=== PATIENT | female | born 1955 | race Caucasian/White ===

== ENCOUNTER 2019-03-15 13:17 | Emergency (ER) | payer SELFPAY ==
--- NOTE | 2019-03-15 13:37 | Emergency Department Record ---
History of Present Illness - General Chief Complaint: Fall Injury Stated Complaint: FALL/LT HAND PAIN Time Seen by Provider: 03/15/19 13:29 Source: Patient Mode of Arrival: Ambulatory Limitations: No limitations - History of Present Illness Initial Comments: The patient is here due to L hand pain for an hour after tripping and falling and injuring it. She denies any L wrist pain or any other injuries. The pain is mainly over the proximal 1st MC bone. 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, & petite-last one "years ago") Hx Weakness: Yes (left thumb) - GI Hx GI Disorders: Yes Hx Reflux: Yes - Hx Genitourinary Disorders: No Comment:: hyst - ENDOCRINE Hx Endocrine Disorders: No - MUSCULOSKELETAL Hx Musculoskeletal Disorders: Yes Hx Arthritis: Yes (hands & all over) - PSYCH Hx Psych Problems: No - HEMATOLOGY/ONCOLOGY Hx Hematology/Oncology Disorders: No Family Medical History Hx Anxiety: Grandparents Hx Cancer: Father *Cancer Comment: dad-prostate Hx Heart Disease: Mother, Grandparents Hx HTN: Mother, Grandparents Hx Seizures: Brother/Sister, Grandparents Hx Stroke: Grandparents Physical Exam - General General Appearance: Alert, Cooperative, No acute distress - Head Head exam: Atraumatic - Eye Eye exam: Normal appearance - Extremities Extremities exam: Normal inspection (There are no signs of trauma, swelling, or abrasions.), Full ROM, Normal capillary refill, Tenderness (There is tenderness to the proximal L thenar area. There is normal hand, wrist and finger ROM.). negative: Joint swelling Course - Reevaluation(s) Reevaluation #1: I did discuss the need to wear the splint and take her home pain medicines. She is to see Dr. Burrell for recheck in the Specialty clinic next week. 01/05/20 14:37 Medical Decision Making - Data Complexity MDM Data: X-Ray Ordered and/or Reviewed - Radiology Data Radiology results: Report reviewed (L hand: Neg for fx but possible loosening around the 1st MC prosthesis.) Disposition Disposition: Discharge Clinical Impression: Hand injury Qualifiers: Encounter type: initial encounter Laterality: left Qualified Code(s): S69.92XA - Unspecified injury of left wrist, hand and finger(s), initial encounter Disposition: Home, Self-Care Condition: (2) Stable Instructions: Hand Sprain (ED) Additional Instructions: Please use Tylenol or Motrin for pain and continue to ice the hand when possible. Wear the splint until evaluated further by Dr. Burrell in the Specialty clinic. Referrals: [facility] [Provider Group] Forms: Patient Portal Access Time of Disposition: 14:39 Quality - Quality Measures Quality Measures: N/A - Blood Pressure Screening Does Patient Have Any of the Following: No Blood Pressure Classification: Pre-Hypertensive BP Reading Systolic Measurement: 129 Diastolic Measurement: 79 Screening for High Blood Pressure: < Pre-Hypertensive BP, F/U Documented > [[id number]] Pre-Hypertensive Follow-up Interventions: Referral to alternative/primary care provider.
[2019-03-15] MEDS ORDERED: IBUPROFEN 600 MG TABLET PO ONE (14:12)
--- NOTE | 2019-03-15 14:28 | RADIOLOGY REPORT ---
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 There is lucency at both the carpal an d metacarpal aspects consistent with loosening. No acute fracture. Significant arthritic changes at the third and fourth PIP joints as well as all the DIP joints IMPRESSION: Loosening around the prosthesis without evidence of fracture. Dictated by: Lynette Upton MD on 03/15/2019 2:22 PM. .
== END 2019-03-15 14:50 | disposition home or self-care (01) ==
LOC: ER 13:17
DX: S69.92XA Unspecified injury of left wrist, hand and finger(s), initial encounter (principal); W10.9XXA Fall (on) (from) unspecified stairs and steps, initial encounter
CPT/HCPCS: 99283